=== PATIENT | female | born 2000 | race Hispanic/Latino ===

== ENCOUNTER 2021-05-16 11:47 | Emergency (ER) | payer MEDICAID, SELFPAY ==
[2021-05-16 11:48] VITALS: BP 132/89; PULSE 87; RESP 16; TEMP 36.3; O2SAT 100; BMI 30.2
--- NOTE | 2021-05-16 12:26 | EX.ED.DYSGE1 ---
HPI History of Present Illness Chief Complaint: Other, Pain/Inj Informant: patient Onset/Context/Timing Onset: Weeks (2) Context: Gradual Onset Timing: Continuous Quality: Sharp Location: Right upper thigh Worsened by: Walking Relieved by: Nothing Narrative Narrative: Patient presents with pain from an infected lymph node that has been getting worse over the past 2 weeks. Patient states it is over the right upper thigh area. Patient describes her pain as sharp. Patient states she had an ultrasound of her right lower extremity which did not show any evidence of DVT. Patient states she had an MRI of her right lower extremity which did show an infected and swollen lymph node. Patient states her pain is worse with walking. Patient states she was originally put on a course of amoxicillin which did not help. Patient states she is currently taking doxycycline which has not been helping. Patient denies any nausea or vomiting. Patient admits to subjective fevers. PFSH PFSH Medical History no medical history no medical history Home Medications amoxicillin 05/16/21 [History Last Taken Unknown] clindamycin HCl [Cleocin HCl] 300 mg PO Q6H #40 capsule 05/16/21 [Rx Last Taken Unknown] Allergy/AdvReac Type Severity Reaction Status Date / Time No Known Allergies Allergy Verified 05/16/21 11:50 Surgical History no surgical history no surgical history Social History Smoking Status: Never smoker ROS ROS ED Constitutional Constitutional ED: Reports fever(s) and subjective; Denies chills Eyes Eyes: Denies blurry vision or change in vision ENT ENT ED: Denies rhinorrhea or sore throat Cardiovascular Cardiovascular: Denies chest pain or palpitations Respiratory/Chest Respiratory/Chest: Denies cough or dyspnea Gastrointestinal Gastrointestinal: Denies nausea or vomiting Genitourinary Genitourinary ED: Denies dysuria or hematuria Musculoskeletal Musculoskeletal: Denies back pain or neck pain Integumentary Reports rash; Denies abscess Neurologic Neurologic: Denies headache(s) or weakness Allergic/Immunologic Allergic/Immunologic ED: Denies mouth swelling or urticaria EXAM Physical Exam Const Vital Signs: 05/16/21 11:48 05/16/21 12:23 Temperature 97.4 F L Temperature Source Temporal Pulse Rate 87 Respiratory Rate 16 Respiratory Effort Normal Non-Labored Blood Pressure 132/89 H Blood Pressure Mean 103 Pulse Ox 100 Oxygen Delivery Method Room Air Positive well nourished and well developed General Appearance ED: well developed HEENT Reports moist mucous membranes Neck supple and no JVD Extremity normal to inspection General Extremety ED: Yes tenderness; Negative for edema General Extremity: Negative for edema Neuro oriented x3, CN's II-XII intact bilaterally and no sensory deficits noted Sensorium / Orientation: alert Motor Exam: strength 5/5 throughout Psych mental status grossly normal Skin no rashes or lesions noted Skin Narrative: There is some erythema and warmth over the anterior aspect of the right proximal thigh. There is some induration noted. There is tenderness noted. There is no fluctuance or evidence of any abscess. There is no discharge or drainage. MDM MDM MDM Narrative Medical decision making narrative: Patient was instructed to stop taking the doxycycline. Patient was given a prescription for clindamycin. Patient was instructed to take that 4 times daily. Patient was instructed to follow-up with her primary care physician and 3 to 5 days. Patient was instructed use warm compresses to the area. Patient understood and was agreeable with the plan. All questions were answered. Discharge Plan Triage Chief Complaint: Other, Pain/Inj ED Provider: Nirmal Robertson Dx/Rx/DC Orders Clinical Impression: Cellulitis of right thigh Instructions: ED Cellulitis Prescriptions: New clindamycin HCl [Cleocin HCl] 300 MG capsule 300 mg PO Q6H Qty: 40 RF: 0 No Action amoxicillin 125 mg Tablet,Chewable RF: 0 Referrals: Fast,Peg, DO [NON-STAFF] - 3-5 Days Activity Restrictions/Additional Instructions: Apply warm compresses to the area. Disposition Disposition: Home, Self Care
[2021-05-16] MEDS: Clindamycin HCl 150 MG Capsule 300 MG PO (12:45)
== END 2021-05-16 12:47 | disposition home or self-care (01) ==
PROVIDERS: Emergency Provider Emergency Medicine
DX: L03.115 Cellulitis of right lower limb (principal)
CPT/HCPCS: 99283

== ENCOUNTER 2021-06-07 11:44 | Emergency (ER) | payer MEDICAID, SELFPAY ==
[2021-06-07 11:44] VITALS: BP 136/94; PULSE 66; RESP 16; TEMP 36.6; O2SAT 97; BMI 29.9
--- NOTE | 2021-06-07 14:19 | EX.ED.DYSGE1 ---
HPI History of Present Illness Chief Complaint: Wound Detail of Chief Complaint: Wound check with concern for infection Informant: patient Narrative Narrative: Patient is presenting with a wound to her right upper thigh with concern for infection. Patient tells me she had a abscess or lymph node that required surgical drainage on May 24 which was done in [place]. The wound was left open and has been healing by secondary intention. She feels overall this has improved significantly. She went to the [facility] to have it evaluated and it was thought he might be getting infected so she was referred to the emergency department. Patient states initially cultures were done but no results have been obtained she is not sure if the cultures were lost. Patient denies any fevers. She denies chills or sweats. Prior similar symptoms: No PFSH PFSH Medical History (Updated 06/07/21 @ 14:[address] Ingrid Whitaker DO) Lymph node abscess Home Medications amoxicillin 05/16/21 [History Last Taken Unknown] clindamycin HCl [Cleocin HCl] 300 mg PO Q6H #40 capsule 05/16/21 [Rx Last Taken Unknown] sulfamethoxazole-trimethoprim [Bactrim DS] 1 tab PO BID 10 Days #20 tab 06/07/21 [Rx Last Taken Unknown] Allergy/AdvReac Type Severity Reaction Status Date / Time No Known Allergies Allergy Verified 06/07/21 11:46 Social History Smoking Status: Never smoker ROS ROS ED Constitutional Constitutional ED: Reports systems reviewed and no addt'l complaints, except as documented; Denies body ache(s), change in weight or chills Eyes Eyes: Denies acute decrease in peripheral vision, change in vision, double vision or loss of vision ENT ENT ED: Reports none; Denies ear pain, lip swelling, loss taste/smell, neck pain, otalgia or sore throat Cardiovascular Cardiovascular: Reports none; Denies abdominal pain, chest pain with activity, leg edema, lightheadedness, palpitations, rapid heart rate or syncope Respiratory/Chest Respiratory/Chest: Reports none; Denies change in mental status, dry cough, dyspnea, hemoptysis, shortness of breath at rest or shortness of breath with exertion Gastrointestinal Gastrointestinal: Reports none; Denies abdominal pain, change in stool character, diarrhea, hematemesis, hematochezia, melena, rectal bleeding or vomiting Genitourinary Genitourinary ED: Reports none; Denies abdominal discomfort, anuria, dysuria, genital pain or polyuria Musculoskeletal Musculoskeletal: Reports none; Denies arthralgias, back pain, difficulty walking, extremity pain, muscle weakness or myalgias Integumentary Reports none and abscess; Denies rash Neurologic Neurologic: Reports none; Denies abnormal gait, confusion, focal weakness, frequent falls, headache(s), loss of vision, numbness, paresthesias, radicular pain, vertigo or weakness Psychiatric Psychiatric: Reports systems reviewed and no addt'l complaints, except as documented and none; Denies behavioral changes, confusion, difficulty concentrating, hallucinations, suicidal ideation, tactile hallucinations or visual hallucinations Endocrine Endocrinology: Denies none, cold intolerance, excessive sweating, fatigue or heat intolerance Hematologic/Lymphatic Hematologic/Lymphatic: Reports none; Denies anemia, easy bleeding or easy bruising Allergic/Immunologic Allergic/Immunologic ED: Denies as per HPI, none, lip swelling, mouth swelling, throat swelling, tongue swelling or hives EXAM Physical Exam Const Vital Signs: 06/07/21 11:44 Temperature 97.8 F Temperature Source Temporal Pulse Rate 66 Respiratory Rate 16 Blood Pressure 136/94 H Blood Pressure Mean 108 Pulse Ox 97 Oxygen Delivery Method Room Air Positive well nourished and well developed General Appearance ED: well developed and NAD HEENT Reports TM's clear and moist mucous membranes normocephalic and atraumatic; Negative for trauma or tenderness Tympanic Membrane ED: Yes TM's clear Eyes PERRL and EOMs intact bilaterally General Eye ED: Negative for pale conjunctiva or scleral icterus Neck no lymphadenopathy, supple and no JVD General: Negative for tenderness Chest Wall inspection of chest normal and palpation of chest normal Chest: Negative for tenderness Resp normal respiratory effort and clear to auscultation bilaterally Effort and Inspection: Negative for respiratory distress or pain with movement Auscultation: Negative for rhonchi, wheezes or diminished lung sounds Cardio regular rate, regular rhythm, S1 normal heart sound, S2 normal heart sound and no murmurs Peripheral Pulses: pulses 2+ throughout GI normal to inspection, nondistended, normoactive bowel sounds, soft to palpation, non-tender, non-distended and no masses Back/Spine no CVA tenderness and no thoracic nor lumbar tenderness Extremity normal to inspection General Extremety ED: Negative for edema General Extremity: Negative for edema Neuro oriented x3, CN's II-XII intact bilaterally, no sensory deficits noted and gait normal Sensorium / Orientation: awake, alert, oriented to person, oriented to place and oriented to time Motor Exam: strength 5/5 throughout and strength abnormal Psych mental status grossly normal Skin Skin Narrative: Evaluation of the right upper anterior thigh reveals a wound that appears to be healing well. The central portion has some eschar and granulation tissue. There is small amount of yellowish to white drainage noted. There is no surrounding erythema or cellulitis. No fluctuance noted. No increased warmth noted. She is neurovascular intact distally. MDM MDM MDM Narrative Medical decision making narrative: At this point I suspect her wound is healing well. No obvious areas of cellulitis other than small amount of drainage noted. I did culture the wound drainage and patient will be started on Bactrim. Patient advised to follow-up with her primary care physician within next 3 to 5 days. Patient to return if increasing pain, redness, swelling, or conditions worsen anyway. Discharge Plan Triage Chief Complaint: Wound ED Provider: Ingrid Whitaker Dx/Rx/DC Orders Clinical Impression: Postoperative wound infection Instructions: ED Wound Infection after surgery Prescriptions: New sulfamethoxazole-trimethoprim [Bactrim DS] 800-160 mg tablet 1 tab PO BID 10 Days Qty: 20 RF: 0 No Action amoxicillin 125 mg Tablet,Chewable RF: 0 clindamycin HCl [Cleocin HCl] 300 MG capsule 300 mg PO Q6H Qty: 40 RF: 0 Primary Care Provider: Kavon Valente,Out of Referrals: Kavon Valente,Out of [Primary Care Provider] - 3-5 Days
[2021-06-07] MEDS: Smz/Tmp Ds Tablet 1 TABLET PO (14:24)
== END 2021-06-07 14:37 | disposition home or self-care (01) ==
LOC: ED 14:34
PROVIDERS: Emergency Provider Emergency Medicine; PCP Pediatrics
DX: T81.41XA Infection following a procedure, superficial incisional surgical site, initial encounter (principal)
CPT/HCPCS: 87070; 87205; 99283

== ENCOUNTER 2023-03-31 10:55 | Emergency (ER) | payer MEDICAID, SELFPAY ==
[2023-03-31 10:56] VITALS: BP 128/86; PULSE 77; RESP 18; TEMP 36.2; O2SAT 100; BMI 29.4
--- NOTE | 2023-03-31 11:24 | EDS_ITS ---
HPI History of Present Illness Chief Complaint: Other, Pain/Inj Detail of Chief Complaint: Left jaw pain Informant: patient Narrative Narrative: Patient present secondary to left jaw pain. She states its been hurting intermittently for the past month but pretty constant for the past 2 days. She denies any dental pain. Does not believe that she grinds her teeth at night. She denies ear pain. She denies any recent injury to the area. [facility] Medical History Lymph node abscess Home Medications amoxicillin 125 mg chewable tablet 05/16/21 [History Last Taken Unknown] clindamycin HCl 300 mg capsule (Cleocin HCl) 300 mg PO Q6H #40 CAPSULES 05/16/21 [Rx Last Taken Unknown] sulfamethoxazole 800 mg-trimethoprim 160 mg tablet (Bactrim DS) 1 tab PO BID 10 days #20 tabs 06/07/21 [Rx Last Taken Unknown] penicillin V potassium 250 mg tablet 500 mg (2 x 250 mg) PO 4X/DAY #40 tabs 03/31/23 [Rx Last Taken Unknown] Allergy/AdvReac Type Severity Reaction Status Date / Time No Known Allergies Allergy Verified 06/07/21 11:46 Social History Smoking Status: Never smoker ROS ROS ED Constitutional Constitutional ED: Denies chills or fever(s) ENT ENT ED: Denies ear pain, rhinorrhea or sore throat Cardiovascular Cardiovascular: Denies chest pain Respiratory/Chest Respiratory/Chest: Denies cough or dyspnea Gastrointestinal Gastrointestinal: Denies abdominal pain, nausea or vomiting Musculoskeletal Musculoskeletal: Denies back pain Integumentary Denies Abrasions or rash Neurologic Neurologic: Denies headache(s) or weakness Psychiatric Psychiatric: Denies anxiety or depression Allergic/Immunologic Allergic/Immunologic ED: Denies lip swelling or urticaria EXAM Physical Exam Const Vital Signs: 03/31/23 10:56 03/31/23 11:23 Temperature 97.2 F L Temperature Source Temporal Pulse Rate 77 Respiratory Rate 18 Respiratory Effort Normal Non-Labored Respiratory Pattern Normal Blood Pressure 128/86 H Blood Pressure Mean 100 Pulse Ox 100 Oxygen Delivery Method Room Air Positive well nourished and well developed General Appearance ED: well developed HEENT Reports moist mucous membranes HEENT Narrative: Patient does have reproducible tenderness over the left maxillary second molar. No tenderness along the TMJ line. Mild tenderness in the submental space at the angle of the mandible. No focal abscess or enlarged lymph node palpated at this time. Posterior pharynx exam is unremarkable. TMs are clear bilaterally. Eyes EOMs intact bilaterally Neck no lymphadenopathy Chest Wall inspection of chest normal and palpation of chest normal Resp normal respiratory effort and clear to auscultation bilaterally Cardio regular rate and regular rhythm GI non-tender Palpation: soft Extremity normal to inspection Neuro oriented x3 and no sensory deficits noted Motor Exam: strength 5/5 throughout Skin no rashes or lesions noted MDM MDM MDM Narrative Medical decision making narrative: Patient does have reproducible tenderness along the teeth. I will treat her with a course of antibiotics. She is currently in college here but is from [place] and will not be going home until May. I will give her a dental referral sheet I did advise her that some of the college could also give her some dentist that are close to the campus for follow-up. Discharge Plan Triage Chief Complaint: Other, Pain/Inj ED Provider: Karissa Jc Dx/Rx/DC Orders Clinical Impression: Odontalgia Instructions: ED Dental Pain Prescriptions: New penicillin V potassium 250 mg tablet 500 mg PO 4X/DAY Qty: 40 0RF No Action amoxicillin 125 mg Tablet,Chewable clindamycin HCl [Cleocin HCl] 300 MG capsule 300 mg PO Q6H Qty: 40 0RF sulfamethoxazole-trimethoprim [Bactrim DS] 800-160 mg tablet 1 tab PO BID 10 Days Qty: 20 0RF Primary Care Provider: Og Chapman Referrals: Og Chapman MD [Primary Care Provider] - Disposition Disposition: Home, Self Care
[2023-03-31] MEDS: Penicillin Vk 250 MG Tablet 500 MG PO (11:53)
== END 2023-03-31 11:57 | disposition home or self-care (01) ==
LOC: ED 11:39
PROVIDERS: Emergency Provider Emergency Medicine; Visit Provider Emergency Medicine
DX: K08.89 Other specified disorders of teeth and supporting structures (principal)
CPT/HCPCS: 99283